=== PATIENT | male | born 1995 | race Two or more races ===

== ENCOUNTER 2023-06-09 14:30 | Emergency (ER) | payer OTHER ==
[~2023-06-09] VITALS: Ht 165.1 cm; Wt 79.4 kg
[2023-06-09] MEDS ORDERED: COZAAR50 MG PO (14:33)
== END 2023-06-09 16:55 | disposition home or self-care (01) ==
LOC: ER 14:31
DX: I10 Essential (primary) hypertension (principal)

== ENCOUNTER 2024-03-08 03:15 | Outpatient (CLI) | payer OTHER ==
[~2024-03-08 03:15] MED LIST: COZAAR50 MG PO
== END 2024-03-08 04:00 | disposition home or self-care (01) ==
LOC: PPH VACUNA 03:15
PROVIDERS: ATTEND Emergency Medicine Pediatric Emergency Medicine
DX: Z23 Encounter for immunization (principal)

== ENCOUNTER 2024-09-19 07:25 | Outpatient (CLI) | payer OTHER ==
[2024-09-19 08:15] LABS: URINE APPEARANCE Clear; URINE BILIRRUBIN Negative (NEGATIVE); URINE BLOOD Negative; URINE COLOR Yellow; URINE GLUCOSE Negative (NEGATIVE); URINE KETONE Negative (NEGATIVE); URINE LEUKOCYTE Negative; URINE NITRATE Negative; URINE PROTEIN Negative (NEGATIVE); URINE UROBILINOGEN 0.2 E.U./dl
[2024-09-19 08:21] LABS: URINE EPITHELIAL CELLS 1.5 uL (0.0-38.8); URINE RBC 8.2 uL (0.0-20.8); URINE WBC 2.5 uL (0.0-23.2)
[2024-09-19 08:33] LABS: URINE CAST 0.14 uL (0.0-1.40)
[2024-09-19 09:08] LABS: CHOL HDL RATIO 3.7 (0-5.0); TSH 1.58 uIU/mL (0.358-3.74)
== END 2024-09-19 07:44 | disposition home or self-care (01) ==
LOC: LAB 07:25
PROVIDERS: ATTEND General Practice
DX: I10 Essential (primary) hypertension (principal); Z13.29 Encounter for screening for other suspected endocrine disorder; Z13.228 Encounter for screening for other metabolic disorders; R94.6 Abnormal results of thyroid function studies; Z00.01 Encounter for general adult medical examination with abnormal findings; R30.0 Dysuria; R73.9 Hyperglycemia, unspecified